=== PATIENT | male | born 1975 | race Caucasian/White ===

== ENCOUNTER 2020-04-01 06:06 | Day surgery (SDC) | payer OTHER ==
--- NOTE | 2020-03-29 15:45 | Pre-Procedure Note/Attestation ---
Pre-Procedure Note/Attestation Complete Prior to Procedure Planned Procedure: bilateral Procedure Narrative: 1. ORIF nasal fracture 2. Septoplasty 3. SMR inf right turbinate 4. SMR inf left turbinate Indications for Procedure Pre-Operative Diagnosis: Nasal fracture Septal deviation Hypertrophied right inferior turbinate Hypertrophied left inferior turbinate Attestation I attest that I discussed the nature of the procedure; its benefits; risks and complications; and alternatives (and the risks and benefits of such alternatives), prior to the procedure, with the patient (or the patient's legal business development representative). I attest that, if there was a reasonable possibility of needing a blood transfusion, the patient (or the patient's legal business development representative) was given the [place] Department [employer] standardized written summary, pursuant to the [place] Blood Safety Act ([place] Health and Safety Code # 1645, as amended). I attest that I re-evaluated the patient just prior to the surgery and that there has been no change in the patient's H&P which I have reviewed from an outside source and he is stable to proceed. Jesus Perez MD Mar 29, 2020 15:45
--- NOTE | 2020-03-29 15:47 | Brief Operative Note ---
Immediate Post Operative Note Operative Note Chief Complaint: Nasal fracture, septal deviation and hypertrophied inferior turbinates. Pre-op Diagnosis: Nasal fracture Septal deviation Hypertrophied right inferior turbinate Hypertrophied left inferior turbinate Procedure: 1. ORIF nasal fracture 2. Septoplasty 3. SMR inf right turbinate 4. SMR inf left turbinate Post-op Diagnosis: same as pre-op Surgeon: Jesus Perez MD Metalizing Supervisor: none Additional Surgeons: none Anesthesiologist: Dr. Toscano Anesthesia: general Specimen: none Complications: none Condition: stable Fluids: D5LR Estimated Blood Loss: volume - 25 cc Drains: none Packing: SinoNasal gel Tourniquet time: 0 Implant(s) used?: No Jesus Perez MD Mar 29, 2020 15:47
--- NOTE | 2020-03-29 15:54 | Discharge Instructions ---
Discharge Instructions Discharge Instructions Follow up with: Dr. Perez04/08/2020 0945am Diet: regular Resume Normal Activity?: No Activity: light activity Pneumonia Vaccine: pt refused vaccine Influenza Vaccine (Mar to Aug): pt refused vaccine Follow Up Orders Pt has printed instructions re pre and post p care that we reviewed on . He [place] Axzitromycin from [place] and pain pills from his ortho. . which is [place]. ice to face x 48 hours. Return to Work/School on: Apr 16, 2020 For Surgical Patients May shower: No For Congestive Heart Failure Reminder Report to your physician any weight gain of 5 pounds or more in one week. Jesus Perez MD Mar 29, 2020 15:54
[2020-04-01] VITALS (14 sets, daily range): BP systolic 118–143; BP diastolic 68–81
[~2020-04-01] VITALS: Ht 175.3 cm; Wt 77.1 kg
[~2020-04-01 06:06] MED LIST: AZITHROMYCIN500 MG ORAL; HYDROCODON-ACE1 EA15 ORAL; IBUPROFEN600 M1 ORAL
[2020-04-01] MEDS ORDERED: Cocaine HCl 4% 4ml vial TOPIC ONE (06:59)
[2020-04-01] MEDS ORDERED: Lidocaine 1% 10mg/ml/EPI 0.01mg/ml 30ml INJ ONE (07:00)
[2020-04-01] MEDS ORDERED: Bupivacaine 0.5% Inj 30 ml vial INJ ONE (07:00)
[2020-04-01] MEDS ORDERED: fentaNYL 100 mcg/2 mL IV ONE (07:04)
[2020-04-01] MEDS ORDERED: Midazolam 2mg/2ml Inj ONE (07:04)
[2020-04-01] MEDS ORDERED: NS Irrig 1000ml IRRIG ONE ×2 (07:04→07:44)
[2020-04-01] MEDS ORDERED: Lidocaine 1% MPF 10mg/ml 5ml ONE (07:05)
[2020-04-01] MEDS ORDERED: Clindamycin 600mg 50 ML IV ONE (07:13)
[2020-04-01] MEDS ORDERED: Azithromycin 500 MG in NS 275 ML IV ONE (07:15)
[2020-04-01] MEDS ORDERED: Sterile Water Irrig 1000ml IRRIG ONE (07:30)
[2020-04-01] MEDS ORDERED: LR 1000ml ONE (07:30)
--- NOTE | 2020-04-01 08:05 | Anethesia Preoperative Eval ---
Anesthesia Pre-op PMH/ROS General Date of Evaluation: Apr 01, 2020 Time of Evaluation: 07:15 Anesthesiologist: Sathish ASA Score: ASA 2 Mallampati Score Class I : Soft palate, uvula, fauces, pillars visible Class II: Soft palate, uvula, fauces visible Class III: Soft palate, base of uvula visible Class IV: Only hard plate visible Mallampati Classification: Class II Surgeon: Ana Diagnosis: Septal deviation Surgical Procedure: Septoplasty Anesthesia History: none Family History: no anesthesia problems Allergies: Coded Allergies: PENICILLINS (Verified Allergy, Severe, throat closes-up; hives; itching, 04/01/20) Medications: see eMAR Patient NPO?: Yes Past Medical History Cardiovascular: 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 Exam Physician Exam Last Vital Signs Date Time Temp Pulse Resp B/P (MAP) Pulse Ox O2 Delivery O2 Flow Rate FiO2 04/01/20 06:34 98.3 61 18 118/75 99 Room Air Constitutional: NAD Neurologic: CN 2-12 intact Cardiovascular: RRR, no M/R/G Respiratory: CTA Gastrointestinal: S/NT/ND Airway Exam Mallampati Score: Class II MO: full Neck: flexible ROM: full Teeth: intact Dentures: no upper, no lower Anesthesia Pre-op A/P Risk Assessment & Plan Assessment: ASA 2 Plan: GA with LMA Status Change Before Surgery: No Pre-Antibiotics Drug: Clindamicin Given Within 1 Hr of Incision: Yes Time Given: 07:56 Martin Bower MD Apr 01, 2020 08:05
[2020-04-01] MEDS ORDERED: DiphenhydrAMINE 50mg/ml Inj IVP PRN (08:15)
[2020-04-01] MEDS ORDERED: Metoclopramide 10mg/2ml Inj IVP PRN ×2 (08:15→08:30)
[2020-04-01] MEDS ORDERED: Meperidine 25mg/1ml Inj (FOR RIGORS ONLY) IV PRN (08:15)
[2020-04-01] MEDS ORDERED: LR 1000ml 1,000 ML IVLG SCH (08:15)
[2020-04-01] MEDS ORDERED: Ketorolac 30mg Inj IV PRN (08:15)
--- NOTE | 2020-04-01 08:29 | Immediate Post-Op Evaluation ---
Immediate Post-Op Evalulation Immediate Post-Op Evalulation Procedure: ORIF of nasal Fx, septoplasty Date of Evaluation: Apr 01, 2020 Time of Evaluation: 08:27 IV Fluids: 700 Blood Products: none Estimated Blood Loss: 25 Urinary Output: none Blood Pressure Systolic: 136 Blood Pressure Diastolic: 72 Pulse Rate: 64 Respiratory Rate: 20 O2 Sat by Pulse Oximetry: 99 Temperature (Fahrenheit): 97.6 Pain Score (1-10): 1 Nausea: No Vomiting: No Complications none Patient Status: reacts, patent, none Hydration Status: adequate Martin Bower MD Apr 01, 2020 08:29
[2020-04-01] MEDS ORDERED: HYDROmorphone 1mg/ml Carpuject SUBQ PRN (08:30)
[2020-04-01] MEDS ORDERED: HYDROcodone/Acetamin 5/325 tab ORAL PRN (08:30)
--- NOTE | 2020-04-01 09:08 | 48 Hour Post Anesthesia Eval ---
Post Anesthesia Evaluation Procedure: ORIF of nasal Fx, septoplasty Date of Evaluation: Apr 01, 2020 Time of Evaluation: 09:07 Blood Pressure Systolic: 136 0: 72 Pulse Rate: 68 Respiratory Rate: 20 Temperature (Fahrenheit): 97.6 O2 Sat by Pulse Oximetry: 98 Airway: patent Nausea: No Vomiting: No Pain Intensity: 1 Hydration Status: adequate Cardiopulmonary Status: stable Mental Status/LOC: patient returned to baseline Follow-up Care/Observations: n/a Post-Anesthesia Complications: NONE Follow-up care needed: ready to discharge Martin Bower MD Apr 01, 2020 09:08
[2020-04-01] MEDS ORDERED: Meperidine 25mg/1ml Inj (FOR RIGORS ONLY) ONE (09:15)
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
[2020-04-01] MEDS ORDERED: HYDROcodone/Acetamin 5/325 tab ONE (10:31)
== END 2020-04-01 11:20 | disposition home or self-care (01) ==
LOC: SUR 06:06
DX: S02.2XXA Fracture of nasal bones, initial encounter for closed fracture (principal); J34.3 Hypertrophy of nasal turbinates; Z88.0 Allergy status to penicillin; K21.9 Gastro-esophageal reflux disease without esophagitis; J34.2 Deviated nasal septum; Y04.8XXA Assault by other bodily force, initial encounter; Y92.9 Unspecified place or not applicable
CPT/HCPCS: 21336; 30802; 30930; 94003; C9046; J1100; J2250; J2405; J2704; J3010; J3490; J7120; U0002; 94150; J2180; S0077